=== PATIENT | male | born 2005 | race Caucasian/White ===

== ENCOUNTER 2025-04-02 23:44 | Emergency (ER) | payer BC, OTHER ==
[~2025-04-02] VITALS: Ht 177.8 cm; Wt 88.0 kg
[2025-04-03 00:18] VITALS: O2SAT 98
[2025-04-03] MEDS: SODIUM CHLORIDE 0.9% 1,000 ML IV ONE (01:20)
[2025-04-03 01:33] LABS: BASOPHILS % 1.1 % (0.0-2.0); EOSINOPHILS % 4.7 % (0.0-5.0); HEMATOCRIT. 44.0 % (42.0-52.0); HEMOGLOBIN. 15.2 g/dL (14.0-18.0); LYMPHOCYTES % 51.6 % (20.0-50.0); MEAN PLATELET VOLUME 9.1 fl (7.4-10.4); MONOCYTES % 7.5 % (2.0-8.0); NEUTROPHILS % 35.1 % (40.0-76.0); PLATELET 268 x1000/uL (130-400); RED BLOOD CELL COUNT 4.89 mill/uL (4.7-6.1); RED CELL DISTRIBUTION WIDTH 13.6 % (11.6-14.6)
[2025-04-03 01:41] LABS: CREATININE 0.9 mg/dL (0.6-1.3); UREA NITROGEN BLOOD 7 mg/dL (9-23)
[2025-04-03 01:42] LABS: ETHANOL BLOOD 209 mg/dL (<10)
[2025-04-03 01:51] VITALS: BP 109/59; PULSE 90; RESP 20; TEMP 37.7; O2SAT 99
== END 2025-04-03 02:39 | disposition home or self-care (01) ==
LOC: ER 23:44
DX: F10.129 Alcohol abuse with intoxication, unspecified (principal); R45.1 Restlessness and agitation; Y90.7 Blood alcohol level of 200-239 mg/100 ml
CPT/HCPCS: 99284; 80048; 80320; 85025; 36415; J7030; G0480